=== PATIENT | female | born 2005 | race African-American/Black ===

== ENCOUNTER 2025-03-26 18:55 | Emergency (ER) | payer OTHER ==
[~2025-03-26] VITALS: Ht 157.5 cm; Wt 50.0 kg
[2025-03-26 19:00] VITALS: TEMP 98.6
[2025-03-26 19:37] LABS: PLATELET COUNT (AUTO) 200 K/uL (150-450); RED BLOOD CELL COUNT(AUTO) 4.80 MIL/uL (4.00-5.20); RED CELL DISTRIBUTION WIDTH 14.4 % (11.5-14.5); WHITE BLOOD COUNT (AUTO) 8.7 K/uL (4.5-11.0)
[2025-03-26 19:42] LABS: CALCIUM, TOTAL 9.5 mg/dL (8.8-10.5); CREATININE 0.90 mg/dL (0.60-1.30); GLOMERULAR FILTR. RATE CALC > 60 mL/min (>60); GLUCOSE,RANDOM 97 mg/dL (70-110); SODIUM SERUM 138 mmol/L (136-145); UREA NITROGEN, BLOOD 13 mg/dL (7-18)
[2025-03-26] MEDS: METOCLOPRAMIDE HCL 5 MG/ML 2 ML VIAL IVP ONE (19:44)
[2025-03-26] MEDS: SODIUM CHLORIDE 0.9% 1,000 ML IV ONE (19:45)
[2025-03-26 19:55] LABS: HCG,QUANTITATIVE 1 mIU/mL (0-6)
[2025-03-26 20:20] VITALS: BP 116/65; PULSE 69; RESP 17; O2SAT 99
[2025-03-26 20:39] LABS: APPEARANCE,URINE CLEAR (CLEAR); GLUCOSE, URINE (UA) NEGATIVE (NEGATIVE); LEUKOCYTE ESTERASE ,URINE NEGATIVE (NEGATIVE); NITRATE,URINE NEGATIVE (NEGATIVE); OCCULT BLOOD,URINE NEGATIVE (NEGATIVE); SPECIFIC GRAVITIY, URINE 1.034 (1.003-1.030)
== END 2025-03-26 20:47 | disposition home or self-care (01) ==
LOC: EMS 18:58
DX: K52.9 Noninfective gastroenteritis and colitis, unspecified (principal); F12.90 Cannabis use, unspecified, uncomplicated
CPT/HCPCS: 99284; 96374; 96361; 80048; 81003; 83690; 84702; 85025; 36415; J2765; J7030

== ENCOUNTER 2025-06-26 12:51 | Emergency (ER) | payer OTHER ==
[~2025-06-26] VITALS: Ht 165.1 cm; Wt 41.0 kg
[2025-06-26 12:57] VITALS: BP 125/81; PULSE 121; RESP 18; TEMP 97.9; O2SAT 100
== END 2025-06-26 14:29 | disposition left against medical advice (07) ==
LOC: EMS 12:51
DX: F41.9 Anxiety disorder, unspecified (principal); Z53.21 Procedure and treatment not carried out due to patient leaving prior to being seen by health care provider
CPT/HCPCS: 99281; Z7502